=== PATIENT | male | born 1985 | race Two or more races ===

== ENCOUNTER 2025-03-02 21:54 | Emergency (ER) | payer MEDICAID, SELFPAY ==
[2025-03-02 23:15] VITALS: BP 114/76; PULSE 70; RESP 16; TEMP 36.8; O2SAT 100
--- NOTE | 2025-03-02 23:47 | PD.EDHA ---
ED Headache RME/HPI General Chief Complaint: Headache Stated Complaint: HEADACHE, RIGHT EAR PAIN Time Seen by Provider: 03/02/25 23:47 Arrival date/time: 03/02/25 21:54 RME / HPI RME / HPI Narrative: 39-year-old male presents to the ED with a complaint of right ear pain for the past 7 months and worse for the past 2 months. He was seen by his primary care physician 2 weeks ago and given eardrops as well as oral antibiotics and the pain continues. He was taking ibuprofen at home but ran out therefore his pain is worse. He denies any drainage from the ear. He denies any fever or chills, vomiting or diarrhea, but has had a little nausea. Related Data Home Medications ?Medication ?Instructions ?Recorded ?Confirmed Buspirone * (BUSPAR *) 10 mg PO BID #0 tabs 12/25/14 Previous Rx's ?Medication ?Instructions ?Recorded ibuprofen 600 mg tablet 600 mg PO QID PRN fever or pain 10/18/21 #30 tabs ibuprofen 600 mg tablet 600 mg PO Q8H PRN pain #30 tabs 03/02/25 Allergies Allergy/AdvReac Type Severity Reaction Status Date / Time No Known Allergies Allergy Uncoded 03/02/25 21:54 Review of Systems Review of Systems Systems Reviewed: All systems reviewed, normal except as documented Past Medical History Social History SMOKING STATUS: Never smoker ED Exam Narrative Physical exam: Alert and oriented [place]-speaking male, no acute distress, afebrile, nontoxic-appearing. Lungs are clear, regular rate and rhythm without murmurs, left TM without erythema, right TM without erythema. There is no swelling or erythema to the right canal. No pain with tragus or pinna movement. Neck is supple, no adenopathy. Nares are pale and boggy, pharynx without erythema or exudate. Course Course Course Narrative: Patient was offered a Toradol injection which she refused. He would just like a refill on his Motrin. Orders Category Date Time Status Ibuprofen Tab [Motrin Tab] Med 03/02/25 23:51 Discontinued 600 mg PO X1 ONE Vital Signs Vital signs: Vital Signs Temperature 98.2 F 03/02/25 23:15 Pulse Rate 70 03/02/25 23:15 Respiratory Rate 16 03/02/25 23:15 Blood Pressure 114/76 03/02/25 23:15 Pulse Oximetry (%) 100 03/02/25 23:15 Oxygen Delivery Method Room Air 03/02/25 23:15 Headache Medications / Prescriptions Medication administrations:: Medication Administration History Discontinued Medications Ibuprofen (Ibuprofen Tab 600 Mg Tablet) 600 mg PO X1 ONE Stop: 03/02/25 23:52 Discharge Plan Plan Patient Disposition: HOME (Self Care) Discharge Disposition comment: Stable Prescriptions/Referrals Prescriptions/Med Rec: New ibuprofen 600 mg tablet 600 mg PO Q8H PRN (Reason: pain) Qty: 30 0RF No Action Buspirone * (BUSPAR *) 10 MG tablet 10 mg PO BID Qty: 0 ibuprofen 600 mg tablet 600 mg PO QID PRN (Reason: fever or pain) Qty: 30 0RF Problem List Clinical Impression: Otalgia, right ear Patient/Caregiver Discharge Instructions Additional Instructions: Yeny un seguimiento con efldman medico de atencion primaria en 24 a 48 horas. Regresar al departamento de emergencias por cualquier sintoma nuevo o que empeore. Print Language: Kyr[place]z Stand Alone Forms: Urszula Award Info., Patient Portal Info Letter PA/COMPUTER SUPPORT SPECIALIST Supervising Physician PA/COMPUTER SUPPORT SPECIALIST Supervising Physician: Dr. Abraham
[2025-03-03] MEDS: IBUPROFEN TAB 600 MG TABLET PO (00:18)
== END 2025-03-03 00:30 | disposition home or self-care (01) ==
LOC: SERX 03-03 00:10
PROVIDERS: Emergency Provider Emergency Medicine
DX: H92.01 Otalgia, right ear (principal)
CPT/HCPCS: 99282; A9270